=== PATIENT | female | born 1965 ===

== ENCOUNTER 2018-05-02 12:08 | Emergency (ER) | payer SELFPAY ==
[2018-05-02 12:26] VITALS: RESP 16; O2SAT 100
--- NOTE | 2018-05-02 12:51 | ED PDOC ---
HPI: Trauma/Fall - HPI Time Seen by Provider: 05/02/18 12:31 Chief Complaint (Nursing): Upper Extremity Problem/Injury Chief Complaint (Provider): Pain s/p Fall History Per: Patient History/Exam Limitations: no limitations Onset/Duration Of Symptoms: Days (x1 week) Additional Complaint(s): 52 year old female presents to the ED for pain s/p falling. Patient states that last week she tripped and fell, landing on her right side, now having continues pain to her rt shoulder, rt upper back, and rt side of chest including the rt breast. She states that last year she had a breast augmentation done in [place] and is expressing concern over possibly disrupting the implants from the fall, but does not report any visual changes to the area. Otherwise denies nipple discharge, head injury, hemoptysis, neck pain, abdominal pain, numbness, tingling, and ecchymosis. PMD: none provided Past Medical History Reviewed: Historical Data, Nursing Documentation, Vital Signs Vital Signs: Last Vital Signs Temp 98.2 F 05/02/18 12:24 Pulse 61 05/02/18 12:24 Resp 16 05/02/18 12:24 BP 114/70 05/02/18 12:24 Pulse Ox 100 05/02/18 12:24 - Medical History PMH: No Chronic Diseases - Surgical History Other surgeries: breast augmentation surg - Family History Family History: States: Unknown Family Hx - Home Medications Home Medications: Ambulatory Orders Medication Instructions Recorded Naproxen [Naprosyn] 500 mg PO BID PRN #10 tab 05/02/18 - Allergies Allergies/Adverse Reactions: Allergies Allergy/AdvReac Type Severity Reaction Status Date / Time No Known Allergies Allergy Verified 05/02/18 12:24 Review of Systems ROS Statement: Except As Marked, All Systems Reviewed And Found Negative Cardiovascular: Positive for: Other (right sided chest and breast pain, denies nipple discharge) Respiratory: Negative for: Hemoptysis Gastrointestinal: Negative for: Abdominal Pain Musculoskeletal: Positive for: Shoulder Pain (right), Back Pain (upper right). Negative for: Neck Pain Skin: Negative for: Other (ecchymosis or visual changes to breasts) Neurological: Negative for: Numbness (or tingling) Physical Exam - Reviewed Nursing Documentation Reviewed: Yes Vital Signs Reviewed: Yes - Physical Exam Appears: Positive for: No Acute Distress Head Exam: Positive for: ATRAUMATIC, NORMAL INSPECTION, NORMOCEPHALIC Skin: Positive for: Normal Color, Warm, Dry. Negative for: Rash Cardiovascular/Chest: Positive for: Regular Rate, Rhythm. Negative for: Chest Non Tender (right sided axillary wall tenderness ) Respiratory: Positive for: Normal Breath Sounds. Negative for: Respiratory Distress Pulses-Radial (L): 2+ Pulses-Radial (R): 2+ Gastrointestinal/Abdominal: Positive for: Normal Exam, Soft. Negative for: Tenderness (including subcostal areas) Extremity: Positive for: Normal ROM (actively of right shoulder). Negative for: Tenderness (to right shoulder), Deformity (to right shoulder) Neurologic/Psych: Positive for: Alert, Oriented (x3) Comments: Bilateral breast exam: no ecchymosis, skin changes, masses, deformity, or nipple discharge noted. Search Engine Marketing Manager: Debbie RN - ECG O2 Sat by Pulse Oximetry: 100 (RA) Pulse Ox Interpretation: Normal Medical Decision Making Medical Decision Making: Time: 1248 Initial Impression: s/p fall chest injury Initial Plan: --CT chest without contrast --U-preg --Toradol 15mg IM 1352 CT Chest FINDINGS: LUNGS: Left lower lobe posterior subpleural benign appearing calcified granuloma.. Visualized airway clear MEDIASTINUM: Unremarkable thoracic aorta. No aneurysm. Normal sized heart. Main pulmonary artery unremarkable. No vascular congestion. No suspicious lymphadenopathy. Incidentally noted are a few benign-appearing calcified mediastinal and hilar lymph nodes. PLEURA: No pleural fluid. No pneumothorax. BONES: No fracture. No destructive lesion. UPPER ABDOMEN: Right upper quadrant post cholecystectomy clips present. OTHER FINDINGS: Bilateral breast implants grossly intact. IMPRESSION: Benign granulomatous changes-as above. No acute cardiopulmonary pathology appreciated. No rib fracture pneumothorax noted Other findings as above. Pt made aware of CT results and all questions answered at this time. She is stable for d/c with a script for Naproxen. Advised to follow up at the clinic or ED with new or worsening symptoms. Scribe Attestation: Documented by Beth Buchanan, acting as a scribe for John Casillas PA-C Provider Scribe Attestation: All medical record entries made by the Scribe were at my direction and personally dictated by me. I have reviewed the chart and agree that the record accurately reflects my personal performance of the history, physical exam, medical decision making, and the department course for this patient. I have also personally directed, reviewed, and agree with the discharge instructions and disposition. Disposition - Clinical Impression Clinical Impression: Chest wall contusion - Patient ED Disposition Is Patient to be Admitted: No - Disposition Referrals: [facility] [Outside] [facility] [Outside] Disposition: Routine/Home Disposition Time: 14:00 Condition: IMPROVED Additional Instructions: ALBA ANGULO, thank you for letting us take care of you today. Your provider was Saida Gannon MD and you were treated for FALL, RT BREAST PAIN. The emergency medical care you received today was directed at your acute symptoms. If you were prescribed any medication, please fill it and take as directed. It may take several days for your symptoms to resolve. Return to the Emergency Department if your symptoms worsen, do not improve, or if you have any other problems. Please contact your doctor or call one of the physicians/clinics you have been referred to that are listed on the Patient Visit Information form that is included in your discharge packet. Bring any paperwork you were given at discharge with you along with any medications you are taking to your follow up visit. Our treatment cannot replace ongoing medical care by a primary care provider outside of the emergency department. Thank you for allowing the [facility] team to be part of your care today. If you had an X-Ray or CT scan: A Radiologist will review the ED reading if any change in treatment is needed we will contact you. If you had a blood, urine, or wound culture: It will take several days for the results, if any change in treatment is needed we will contact you. If you had an STI test: It will take 48 hours for the results. Please call after 1 week if you have not heard back. Prescriptions: Naproxen [Naprosyn] 500 mg PO BID PRN #10 tab PRN Reason: Pain Instructions: Contusion (DC) Forms: [facility] (Armenian) Print Language: SINHALA
--- NOTE | 2018-05-02 13:54 | CT ---
Date of service: 05/02/2018 PROCEDURE: CT Chest without contrast HISTORY: s/p fall COMPARISON: None available. TECHNIQUE: Contiguous axial images were obtained through the chest without intravenous contrast enhancement. Sagittal and coronal reconstructions were performed. Radiation dose (DLP): 142 mGy-cm. This CT exam was performed using one or more of the following dose reduction techniques: Automated exposure control, adjustment of the mA and/or kV according to patient size, and/or use of iterative reconstruction technique. FINDINGS: LUNGS: Left lower lobe posterior subpleural benign appearing calcified granuloma.. Visualized airway clear MEDIASTINUM: Unremarkable thoracic aorta. No aneurysm. Normal sized heart. Main pulmonary artery unremarkable. No vascular congestion. No suspicious lymphadenopathy. Incidentally noted are a few benign-appearing calcified mediastinal and hilar lymph nodes. PLEURA: No pleural fluid. No pneumothorax. BONES: No fracture. No destructive lesion. UPPER ABDOMEN: Right upper quadrant post cholecystectomy clips present. OTHER FINDINGS: Bilateral breast implants grossly intact. IMPRESSION: Benign granulomatous changes-as above. No acute cardiopulmonary pathology appreciated. No rib fracture pneumothorax noted Other findings as above.
[2018-05-02 14:31] VITALS: BP 112/50; PULSE 62; TEMP 98.5
== END 2018-05-02 14:37 | disposition home or self-care (01) ==
LOC: H.ER 12:08
DX: S20.219A Contusion of unspecified front wall of thorax, initial encounter (principal); W19.XXXA Unspecified fall, initial encounter; Y92.89 Other specified places as the place of occurrence of the external cause
CPT/HCPCS: 71250; 81025; 96372; 99283; J1885